=== PATIENT | female | born 2000 | race Caucasian/White ===

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

== ENCOUNTER 2021-01-30 13:27 | Emergency (ER) | payer MEDICAID ==
[~2021-01-30] VITALS: Ht 157.5 cm; Wt 59.1 kg
[2021-01-30 13:38] VITALS: BP 112/79
[2021-01-30] MEDS ORDERED: LIDOcaine 5% patch TP STA (14:05)
[2021-01-30 16:43] LABS: URINE HCG NEGATIVE (NEG)
[2021-01-30] MEDS ORDERED: IBUP-1986 PO (18:03)
[2021-01-30] MEDS ORDERED: TRAM50TA2 PO (18:03)
== END 2021-01-30 18:15 | disposition home or self-care (01) ==
LOC: ER 13:28
DX: M53.3 Sacrococcygeal disorders, not elsewhere classified (principal); Z79.2 Long term (current) use of antibiotics; W18.30XA Fall on same level, unspecified, initial encounter; Y93.89 Activity, other specified; Y92.89 Other specified places as the place of occurrence of the external cause; Y99.8 Other external cause status
CPT/HCPCS: 72131; 72220; 81025; 99285

== ENCOUNTER 2021-11-03 21:47 | Emergency (ER) | payer MEDICAID ==
[~2021-11-03] VITALS: Ht 157.5 cm; Wt 50.0 kg
[~2021-11-03 21:47] MED LIST changes: +IBUP-1986 PO
[2021-11-03 22:05] VITALS: BP 130/67
--- NOTE | 2021-11-04 00:01 | NUR ---
not in loby
--- NOTE | 2021-11-04 00:25 | NUR ---
not in loby
--- NOTE | 2021-11-04 00:44 | NUR ---
not in loby
[2021-11-04] MEDS ORDERED: PENI250T2 PO (10:21)
[2021-11-04] MEDS ORDERED: NAPR-56 PO (10:21)
== END 2021-11-04 00:45 | disposition left against medical advice (07) ==
LOC: ER 21:48
DX: K08.89 Other specified disorders of teeth and supporting structures (principal); Z53.21 Procedure and treatment not carried out due to patient leaving prior to being seen by health care provider

== ENCOUNTER 2021-11-04 07:58 | Emergency (ER) | payer MEDICAID ==
[~2021-11-04] VITALS: Ht 157.5 cm; Wt 48.9 kg
[2021-11-04 08:01] VITALS: BP 115/61
[2021-11-04] MEDS ORDERED: NAPR-56 PO (10:21)
[2021-11-04] MEDS ORDERED: PENI250T2 PO (10:21)
== END 2021-11-04 10:40 | disposition home or self-care (01) ==
LOC: ER 07:59
DX: K04.7 Periapical abscess without sinus (principal); R50.9 Fever, unspecified; K13.79 Other lesions of oral mucosa; R11.0 Nausea; Z79.2 Long term (current) use of antibiotics; Z79.899 Other long term (current) drug therapy
CPT/HCPCS: 99283